=== PATIENT | male | born 1980 | race Two or more races ===

== ENCOUNTER 2025-01-17 17:26 | Emergency (ER) | payer SELFPAY ==
[~2025-01-17] VITALS: Ht 175.3 cm; Wt 90.7 kg
[2025-01-17 17:26] VITALS: BP 124/78
[2025-01-17] MEDS ORDERED: ACETAMINOPHEN 500 MG TABLET ONE (19:20)
[2025-01-17] MEDS ORDERED: IBUPROFEN 400 MG TABLET ONE (19:20)
[2025-01-17] MEDS: IBUPROFEN 400 MG TABLET PO ONE (19:23)
[2025-01-17] MEDS: ACETAMINOPHEN 500 MG TABLET PO ONE (19:23)
[2025-01-17 19:44] VITALS: BP 122/77; O2SAT 100
== END 2025-01-17 19:40 | disposition home or self-care (01) ==
LOC: ER 17:39
DX: S80.01XA Contusion of right knee, initial encounter (principal); V43.52XA Car driver injured in collision with other type car in traffic accident, initial encounter; Y93.89 Activity, other specified; Y92.410 Unspecified street and highway as the place of occurrence of the external cause; Y99.9 Unspecified external cause status
CPT/HCPCS: A4606; A4663; A9150

== ENCOUNTER 2025-01-22 14:45 | Emergency (ER) | payer SELFPAY ==
[~2025-01-22] VITALS: Ht 175.3 cm; Wt 85.7 kg
[2025-01-22 15:26] VITALS: BP 130/76
[2025-01-22 17:13] VITALS: BP 128/79; TEMP 97.7; O2SAT 99
== END 2025-01-22 17:14 | disposition home or self-care (01) ==
LOC: ER 14:45
DX: M79.604 Pain in right leg (principal); V89.0XXA Person injured in unspecified motor-vehicle accident, nontraffic, initial encounter; Y93.89 Activity, other specified; Y92.410 Unspecified street and highway as the place of occurrence of the external cause; Y99.9 Unspecified external cause status
CPT/HCPCS: A4606; A4663